=== PATIENT | female | born 1960 | race Caucasian/White ===

== ENCOUNTER 2017-06-17 13:04 | Emergency (ER) | payer BC ==
[~2017-06-17] VITALS: Ht 172.7 cm; Wt 104.3 kg
[2017-06-17] MEDS ORDERED: Norco 5-325 Ta1 EACH PO (13:44)
== END 2017-06-17 14:03 | disposition home or self-care (01) ==
LOC: ER 13:04
DX: S92.332A Displaced fracture of third metatarsal bone, left foot, initial encounter for closed fracture (principal); S92.342A Displaced fracture of fourth metatarsal bone, left foot, initial encounter for closed fracture; Z88.0 Allergy status to penicillin; Z91.040 Latex allergy status; F17.200 Nicotine dependence, unspecified, uncomplicated; W17.89XA Other fall from one level to another, initial encounter
CPT/HCPCS: 29515; 73610; 73630; 96372; 99283; J1885